=== PATIENT | male | born 1975 | race Two or more races ===

== ENCOUNTER 2017-02-27 23:52 | Emergency (ER) | payer OTHER ==
[~2017-02-27] VITALS: Ht 167.6 cm; Wt 81.6 kg
--- NOTE | 2017-02-28 01:00 | NUR ---
Pt ambulated to room with steady gait, no shortness of breath noted. Pt c/o L. rib/chest area pain. Denies trauma. Sts worse with deep breath. Lungs CTA. PT speaking in full sentences. No resp distress noted. Pt resting in position of comfort for self. Awaiting further eval.
[2017-02-28] MEDS ORDERED: IBUPROFEN 800 MG TABLET PO ONE (01:15)
--- NOTE | 2017-02-28 01:30 | NUR ---
Pt medicated for discomfort, will monitor for effects of medication. Pt resting in position of comfort for self
[2017-02-28] MEDS ORDERED: IBUPROFEN 800 MG TABLET ONE (01:35)
[2017-02-28] MEDS ORDERED: HYDROCODONE/APAP 5-325MG TABLET PO ONE (03:00)
--- NOTE | 2017-02-28 03:15 | NUR ---
Pt cont to c/o pain. MD notified and pt medicated. Pt repositioned for comfort.
[2017-02-28] MEDS ORDERED: HYDROCODONE/APAP 5-325MG TABLET ONE (03:24)
[2017-02-28 04:16] LABS: BASOPHILS # (AUTO) 0.1 K/uL (0.0-8.0); BASOPHILS % (AUTO) 0.7 % (0.0-2.0); EOSINOPHILS # (AUTO) 0.2 K/uL (0.0-0.7); EOSINOPHILS % (AUTO) 2.5 % (0.0-7.0); HEMOGLOBIN 14.4 G/DL (14.0-18.0); LYMPHOCYTES # (AUTO) 2.4 K/UL (0.8-4.8); LYMPHOCYTES % (AUTO) 31.5 % (20.5-51.5); MEAN CORPUSCULAR HEMOGLOBIN 30.8 UUG (27.0-31.0); MEAN CORPUSCULAR HGB CONC 34 g/dL (32.0-37.0); MONOCYTES # (AUTO) 0.5 K/UL (0.1-1.30); NEUTROPHILS # (AUTO) 4.4 K/UL (1.8-8.9); NEUTROPHILS % (AUTO) 59.3 % (38.5-71.5); PLATELET COUNT (AUTO) 273 K/UL (150-450); RED BLOOD CELL COUNT(AUTO) 4.66 MIL/UL (4.7-6.1); WHITE BLOOD COUNT (AUTO) 7.6 K/UL (4.0-11.2)
[2017-02-28 04:19] LABS: CARBON DIOXIDE 26 mmol/L (21-32); CHLORIDE 104 mmol/L (98-107); CREATININE 0.9 mg/dL (0.6-1.3); GLUCOSE 101 mg/dL (74-106); POTASSIUM 3.6 mmol/L (3.5-5.1); UREA NITROGEN, BLOOD 16 mg/dL (7-18)
[2017-02-28 04:31] LABS: ALANINE AMINOTRANSFERASE 35 U/L (16-63); ALKALINE PHOSPHATASE 90 U/L (50-136); ASPARTATE AMINOTRANSFERASE 18 U/L (15-37); BILIRUBIN,DIRECT 0.1 mg/dL (0.0-0.2); BILIRUBIN,TOTAL 0.5 mg/dL (0.2-1.0); TOTAL PROTEIN, SERUM 6.8 g/dL (6.4-8.2)
--- NOTE | 2017-02-28 04:49 | NUR ---
Pt to be discharged once ride home is secured. Unable to reach pt's mother at this time
--- NOTE | 2017-02-28 05:45 | NUR ---
Pt given ACI. Pt verbalized understanding of dc instructions. Pt ambulated out of er with steady gait.
[2017-02-28 05:48] VITALS: BP 150/88
== END 2017-02-28 05:48 | disposition home or self-care (01) ==
LOC: ER 23:54
DX: R07.89 Other chest pain (principal); R09.1 Pleurisy; R10.12 Left upper quadrant pain
CPT/HCPCS: 36415; 70030-TC; 71010; 85025; 85730; 93005; A4663